=== PATIENT | male | born 2000 | race Caucasian/White ===

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

== ENCOUNTER 2018-04-21 14:09 | Emergency (ER) | payer BC ==
[2018-04-21 14:27] VITALS: BP 126/66
--- NOTE | 2018-04-21 15:00 | RAD ---
Indication: Cough. 2 views of the chest including dual energy PA views demonstrate no mediastinal shift. Heart is of normal size and configuration. Lung hoang appear clear. IMPRESSION: No active cardiopulmonary disease is noted.
--- NOTE | 2018-04-21 15:30 | ED ---
Throat Pain/Nasal Congestion - HPI Summary HPI Summary: 18 yr old with two complaints. 1) pain over the flap of skin that overlies the right mandibular wisdom tooth for one week. 2) Nasal congestion, runny nose, mild hoarse voice past week with now rattle in chest with deep breath for the past couple days. Denies fever, chills, SOB, trouble swallowing, facial swelling. No CP, no cough of sputum or blood. - History of Current Complaint Chief Complaint: UCDentalProblem Time Seen by Provider: 04/21/18 14:39 - Allergies/Home Medications Allergies/Adverse Reactions: Allergies Allergy/AdvReac Type Severity Reaction Status Date / Time No Known Allergies Allergy Verified 04/21/18 14:23 PMH/Surg Hx/FS Hx/Imm Hx Infectious Disease History: No Infectious Disease History: Denies: Traveled Outside the [place] in Last 30 Days - Family History Known Family History: Positive: Hypertension - Social History Alcohol Use: Weekly Alcohol Amount: 3xWEEK Substance Use Type: Reports: None Smoking Status (MU): Never Smoked Tobacco Review of Systems Constitutional: Negative Positive: Dental Pain, Nasal Discharge All Other Systems Reviewed And Are Negative: Yes Physical Exam Triage Information Reviewed: Yes Vital Signs On Initial Exam: Initial Vitals Temp Pulse Resp BP Pulse Ox 97.9 F 69 15 126/66 100 04/21/18 14:24 04/21/18 14:24 04/21/18 14:24 04/21/18 14:24 04/21/18 14:24 Vital Signs Reviewed: Yes Appearance: Positive: Well-Appearing, No Pain Distress Skin: Positive: Warm, Skin Color Reflects Adequate Perfusion Head/Face: Positive: Normal Head/Face Inspection ENT: Positive: Pharynx normal, Nasal congestion, TMs normal. Negative: Hoarse voice Dental: Positive: Other - tenderness over the right mandibular wisdom tooth flap of gum tissue with partial impaction of that tooth, mild gingival cellulitis. Neck: Positive: Nontender Respiratory/Lung Sounds: Positive: Clear to Auscultation, Breath Sounds Present Cardiovascular: Positive: RRR. Negative: Murmur Abdomen Description: Positive: Nontender Musculoskeletal: Positive: Strength/ROM Intact Neurological: Positive: Normal, Sensory/Motor Intact, Alert, Oriented to Person Place, Time, CN Intact II-III Psychiatric: Positive: Normal Diagnostics - Vital Signs Vital Signs Temp Pulse Resp BP Pulse Ox 04/21/18 14:24 97.9 F 69 15 126/66 100 - Laboratory Lab Statement: Any lab studies that have been ordered have been reviewed, and results considered in the medical decision making process. - Radiology chest pa lat Radiology Interpretation Completed By: Radiologist Summary of Radiographic Findings: NAD EENT Course/Dx - Course Course Of Treatment: 18 yr old with impacted wisdom tooth, and also URI. No stridor, and normal chest xray on exam. Fu with PMD and also his dentis oral surgeon. Will cover with Augmentin for his wisdom tooth impaction. - Diagnoses Provider Diagnoses: Tooth, impacted, Dental infection, Upper respiratory infection Discharge - Sign-Out/Discharge Documenting (check all that apply): Patient Departure All imaging exams completed and their final reports reviewed: Yes - Discharge Plan Condition: Good Disposition: HOME Prescriptions: Amoxicillin/Clavulanate TAB* [Augmentin TAB 875*] 875 mg PO BID #20 tab Patient Education Materials: Toothache (ED), Upper Respiratory Infection (ED) Referrals: No Primary Care Phys,NOPCP [Primary Care Provider] - [facility] [place]Outside] Alistair Castro DMD [Doctor of Dental Medicine] - 1 Day - Billing Disposition and Condition Condition: GOOD Disposition: Home
== END 2018-04-21 15:45 | disposition home or self-care (01) ==
LOC: UCCORT 14:09
DX: K04.7 Periapical abscess without sinus (principal); K01.1 Impacted teeth; J06.9 Acute upper respiratory infection, unspecified
CPT/HCPCS: 71046; 99212; G0463

== ENCOUNTER 2018-08-28 13:00 | Emergency (ER) | payer BC ==
[2018-08-28 13:26] VITALS: BP 124/74
--- NOTE | 2018-08-28 15:05 | UC ---
Throat Pain/Nasal Vaibhav HPI - HPI Summary HPI Summary: 18-year-old male presents with 2 day history of sore throat with chills, headache, nausea, and neck stiffness. Denies visual disturbances, photophobia, ear pain, nasal congestion, dysphagia, cough, chest pain, shortness of breath, vomiting or diarrhea. - History of Current Complaint Chief Complaint: UCRespiratory Stated Complaint: STIFF NECK,FEVER,SARKAR,STOMACH ACHE Time Seen by Provider: 08/28/18 14:44 Hx Obtained From: Patient Pain Intensity: 0 - Allergies/Home Medications Allergies/Adverse Reactions: Allergies Allergy/AdvReac Type Severity Reaction Status Date / Time No Known Allergies Allergy Verified 08/28/18 13:21 Home Medications: Home Medications Dm/PE/Acetaminophen/Doxylamine [COLD & FLU MULTI-SYMPTOM (Liquid)] 1 mis PO ONCE PRN 08/28/18 [History Confirmed 08/28/18] PMH/Surg Hx/FS Hx/Imm Hx Previously Healthy: Yes - Denies significant PMH - Surgical History Surgical History: None - Family History Known Family History: Positive: Hypertension - Social History Occupation: Student Lives: Dormitory/Roommates Alcohol Use: Weekly Alcohol Amount: 3xWEEK Substance Use Type: None Smoking Status (MU): Never Smoked Tobacco - Immunization History Most Recent Influenza Vaccination: Not the 2017/2018 Season Most Recent Tetanus Shot: UTD Review of Systems All Other Systems Reviewed And Are Negative: Yes Constitutional: Positive: Fever, Chills, Fatigue Skin: Negative: Rash Eyes: Negative: Drainage, Eye Redness ENT: Positive: Sore Throat. Negative: Ear Ache, Nasal Discharge, Sinus Congestion, Sinus Pain/Tenderness Respiratory: Negative: Shortness Of Breath, Cough Cardiovascular: Negative: Palpitations, Chest Pain Gastrointestinal: Positive: Nausea. Negative: Abdominal Pain, Vomiting, Diarrhea Genitourinary: Positive: Negative Musculoskeletal: Positive: Negative Neurological: Positive: Negative Is Patient Immunocompromised?: No Physical Exam - Summary Physical Exam Summary: GENERAL APPEARANCE: Well developed, well nourished, alert and cooperative, and appears to be in no acute distress. EYES: Conjunctiva clear. No drainage. PERRL, EOM intact. Vision is grossly intact. EARS: External auditory canals and tympanic membranes clear, hearing grossly intact. NOSE: No nasal discharge. THROAT: Pharyngeal erythema. Tonsils 2+ without exudate or lesions. Uvula midline. Oral cavity normal. Teeth and gingiva in good general condition. NECK: Neck supple, non-tender. Mild anterior cervical lymphadenopathy. No nuchal rigidity. CARDIAC: Normal S1 and S2. No S3, S4 or murmurs. Rhythm is regular. There is no peripheral edema, cyanosis or pallor. Extremities are warm and well perfused. Capillary refill is less than 2 seconds. Peripheral pulses intact. LUNGS: Clear to auscultation without rales, rhonchi, wheezing or diminished breath sounds. ABDOMEN: Positive bowel sounds. Soft, nondistended, nontender. No guarding or rebound. No masses or hepatosplenomegally. MUSKULOSKELETAL: ROM intact to all extremities. No joint erythema or tenderness. Normal muscular development. Normal gait. SKIN: Skin normal color, texture and turgor with no lesions or eruptions. Triage Information Reviewed: Yes Vital Signs: Initial Vital Signs Temp 98.8 F 08/28/18 13:22 Pulse 78 08/28/18 13:22 Resp 16 08/28/18 13:22 BP 124/74 08/28/18 13:22 Pulse Ox 99 08/28/18 13:22 Vital Signs Reviewed: Yes Throat Pain/Nasal Course/Dx - Course Course Of Treatment: 18-year-old male presents with 2 day history of sore throat with chills, headache, nausea, and neck stiffness. Denies visual disturbances, photophobia, ear pain, nasal congestion, dysphagia, cough, chest pain, shortness of breath, vomiting or diarrhea. Afebrile. Vital signs stable. Exam reveals a young adult male in no acute distress with pharyngeal erythema, 2+ tonsils without exudate, mild anterior cervical lymphadenopathy, supple and nontender neck with full range of motion and no nuchal rigidity, neurologically intact, and otherwise unremarkable exam. Rapid strep and flu tests were negative. I suspect that his symptoms are from a viral illness and I 'm recommending symptomatic treatment at this time. He is to return here or follow up in the [facility] in 7 days if his symptoms do not improve. Anticipatory guidance and warning symptoms were reviewed with the patient. Verbalizes understanding and agrees with plan of care. - Differential Dx/Diagnosis Differential Diagnosis/HQI/PQRI: Influenza, Otitis Media, Pharyngitis, Tonsillitis, URI Provider Diagnosis: Viral URI with cough Discharge - Sign-Out/Discharge Documenting (check all that apply): Patient Departure All imaging exams completed and their final reports reviewed: No Studies - Discharge Plan Condition: Stable Disposition: HOME Patient Education Materials: Pharyngitis (ED) Forms: *School Release Referrals: No Primary Care Phys,NOPCP [Primary Care Provider] - Additional Instructions: The rapid strep and flu tests performed in the clinic today were negative. Your symptoms are likely from a viral infection. Viral infections do not respond to antibiotics and are limited to the treatment of symptoms. Viral infections typically run their course in 7-10 days. Drink plenty of fluids to avoid dehydration especially if you are running any fever. Use salt water gargles several times a day. Take over the counter acetaminophen (Tylenol) or ibuprofen (Advil, Motrin) according to directions as needed for pain or fever. You may also use Chloraseptic spray or Cepacol lonzenges according to directions which contain a numbing medication and can provide some temporary relief from your sore throat. Return here or follow up with at the [facility] in 7 days if symptoms persist. Seek immediate medical attention in the emergency room if you have fever greater than 100.5 F despite taking acetaminophen or ibuprofen, are unable to swallow or develop drooling, are unable to open your mouth fully, are unable to eat or drink, have worsening headache that is not relieved with over the counter pain medication, have difficulty breathing, or any worsening of symptoms. - Billing Disposition and Condition Condition: STABLE Disposition: Home - Attestation Statements Provider Attestation: Per institutional requirements, I have reviewed the chart, however, I was not consulted specifically or made aware of this patient by the midlevel provider. I did not personally evaluate, interact with , or disposition this patient.
[2018-08-28 15:38] LABS: Influenza A Molecular NEGATIVE (Negative); Influenza B Molecular NEGATIVE (Negative)
== END 2018-08-28 15:51 | disposition home or self-care (01) ==
LOC: UCCORT 13:00
DX: J06.9 Acute upper respiratory infection, unspecified (principal); R05 Cough
CPT/HCPCS: 87651; 99211; G0463

== ENCOUNTER 2019-04-28 10:56 | Emergency (ER) | payer BC ==
[2019-04-28 11:51] VITALS: BP 115/63
--- NOTE | 2019-04-28 12:35 | UC ---
Ear Complaint HPI - HPI Summary HPI Summary: 19-year-old male presents with complaints of onset of right ear pain last evening. States the pain woke him several times during the night. 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 Denies fever, chills, tinnitus, ear drainage, loss of hearing, vertigo, or URI symptoms. - History of Current Complaint Chief Complaint: UCEar Stated Complaint: RT EAR PAIN Time Seen by Provider: 04/28/19 12:19 Hx Obtained From: Patient Pain Intensity: 7 - Allergies/Home Medications Allergies/Adverse Reactions: Allergies Allergy/AdvReac Type Severity Reaction Status Date / Time No Known Allergies Allergy Verified 04/28/19 11:47 PMH/Surg Hx/FS Hx/Imm Hx Previously Healthy: Yes - Denies significant PMH - Surgical History Surgical History: None - Family History Known Family History: Positive: Hypertension - Social History Occupation: Employed Full-time, Student Lives: With Family Alcohol Use: Weekly Alcohol Amount: 3xWEEK Substance Use Type: None Smoking Status (MU): Never Smoked Tobacco - Immunization History Most Recent Influenza Vaccination: Not the 2017/2017 Season Most Recent Tetanus Shot: UTD Review of Systems All Other Systems Reviewed And Are Negative: Yes Constitutional: Negative: Fever, Chills Skin: Negative: Rash Eyes: Negative: Drainage, Eye Redness ENT: Positive: Ear Ache. Negative: Sore Throat, Nasal Discharge, Sinus Congestion, Sinus Pain/Tenderness Respiratory: Negative: Cough Cardiovascular: Positive: Negative Gastrointestinal: Positive: Negative Genitourinary: Positive: Negative Musculoskeletal: Positive: Negative Neurological: Positive: Negative Is Patient Immunocompromised?: No Physical Exam - Summary Physical Exam Summary: GENERAL APPEARANCE: Well developed, well nourished, alert and cooperative, and appears to be in no acute distress. EYES: Conjunctiva clear. No drainage. EARS: Left external auditory canal and tympanic membranes clear. Right external auditory canal with mild-moderate erythema and edema. TM intact, opaque, with good cone of light. NOSE: No nasal discharge. THROAT: Pharynx normal. No tonsilar inflammation, swelling, exudate, or lesions. Uvula midline. Oral cavity normal. Teeth and gingiva in good general condition. NECK: Neck supple, non-tender without lymphadenopathy. CARDIAC: Normal S1 and S2. No S3, S4 or murmurs. Rhythm is regular. There is no peripheral edema, cyanosis or pallor. Extremities are warm and well perfused. Capillary refill is less than 2 seconds. Peripheral pulses intact. LUNGS: Clear to auscultation without rales, rhonchi, wheezing or diminished breath sounds. ABDOMEN: Positive bowel sounds. Soft, nondistended, nontender. No guarding or rebound. No masses or hepatosplenomegally. MUSKULOSKELETAL: ROM intact to all extremities. No joint erythema or tenderness. Normal muscular development. Normal gait. SKIN: Skin normal color, texture and turgor with no lesions or eruptions. Triage Information Reviewed: Yes Vital Signs: Initial Vital Signs Temp 97.9 F 04/28/19 11:48 Pulse 60 04/28/19 11:48 Resp 16 04/28/19 11:48 BP 115/63 04/28/19 11:48 Pulse Ox 99 04/28/19 11:48 Vital Signs Reviewed: Yes Ear Complaint Course/Dx - Course Course Of Treatment: 19-year-old male presents with complaints of onset of right ear pain last evening. States the pain woke him several times during the night. 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 Denies fever, chills, tinnitus, ear drainage, loss of hearing, vertigo, or URI symptoms. Afebrile. Vital signs stable. On exam patient was noted to have right external auditory canal with mild-moderate erythema and edema, the TM intact, opaque, with good cone of light, and remainder of exam was unremarkable. Will treat for a right otitis externa with Ciprodex otic 4 drops into the right ear twice daily for 7 days. He is to return here or follow up with the [facility] [place] in 3-5 days if symptoms do not improve. Anticipatory guidance and warning symptoms were reviewed with the patient. Verbalizes understanding and agrees with plan of care. - Differential Dx/Diagnosis Differential Diagnosis/HQI/PQRI: Otitis Externa, Otitis Media, URI Provider Diagnosis: External otitis of right ear Discharge ED - Sign-Out/Discharge Documenting (check all that apply): Patient Departure All imaging exams completed and their final reports reviewed: No Studies - Discharge Plan Condition: Stable Disposition: HOME Prescriptions: Ciproflox/Dexameth OTIC.SUSP* [Ciprodex OTIC.SUSP*] 4 drop .SEE ORDER BID 7 Days #1 drop Patient Education Materials: Otitis Externa (ED) Referrals: No Primary Care Phys,NOPCP [Primary Care Provider] - Additional Instructions: Your exam shows an infection of the right ear canal,a condition called otitis externa. We will start she on a an antibiotic and steroid ear drop to treat the infection and help with the inflammation and pain. Use Ciprodex otic 4 drops to the affected ear twice daily for 7 days. Take acetaminophen (Tylenol) or ibuprofen (Advil, Motrin) according to directions as needed for pain. Return here or [facility]-5 days if your symptoms are not improving. Seek immediate medical attention if you develop a fever greater than 100.5 F, have loss of hearing, increased pain that is not managed with pain medication, have drainage or bleeding from the ear, or any worsening of symptoms. - Billing Disposition and Condition Condition: STABLE Disposition: Home
== END 2019-04-28 13:01 | disposition home or self-care (01) ==
LOC: UCCORT 10:56
DX: H60.91 Unspecified otitis externa, right ear (principal)
CPT/HCPCS: 99212; G0463

== ENCOUNTER 2019-05-13 10:08 | Emergency (ER) | payer BC ==
[2019-05-13 10:30] VITALS: BP 128/74
[2019-05-13 10:58] LABS: Influenza A Molecular NEGATIVE (Negative); Influenza B Molecular NEGATIVE (Negative)
--- NOTE | 2019-05-13 11:05 | UC ---
Respiratory Complaint HPI - HPI Summary HPI Summary: 19 yo male with < 48 hour hx of cough/fever/chills/nasal congestion no n/v/d no sob no chest pain - History of Current Complaint Chief Complaint: UCRespiratory Stated Complaint: SARKAR,CONGESTION,COUGH,FEVER Time Seen by Provider: 05/13/19 10:47 Hx Obtained From: Patient Onset/Duration: Gradual Onset Timing: Constant Severity Initially: Mild Severity Currently: Moderate Pain Intensity: 0 Pain Scale Used: 0-10 Numeric Character: Cough: Nonproductive Aggravating Factors: Nothing Alleviating Factors: Nothing Associated Signs And Symptoms: Positive: Fever, Chills, Nasal Congestion - Allergies/Home Medications Allergies/Adverse Reactions: Allergies Allergy/AdvReac Type Severity Reaction Status Date / Time No Known Allergies Allergy Verified 05/13/19 10:27 Home Medications: Home Medications Ibuprofen TAB* [Advil TAB*] 400 mg PO Q6H PRN 05/13/19 [History Confirmed ] PMH/Surg Hx/FS Hx/Imm Hx Previously Healthy: Yes - Surgical History Surgical History: None - Family History Known Family History: Positive: Hypertension - Social History Alcohol Use: Two to three times weekly Alcohol Amount: 3xWEEK Substance Use Type: Marijuana Substance Use Comment - Amount & Last Used: Three times weekly Smoking Status (MU): Never Smoked Tobacco - Immunization History Most Recent Influenza Vaccination: Not the 2016/2017 Season Most Recent Tetanus Shot: UTD Review of Systems All Other Systems Reviewed And Are Negative: Yes Constitutional: Positive: Fever, Chills Eyes: Positive: Negative ENT: Positive: Nasal Discharge, Sinus Congestion. Negative: Epistaxis, Dental Pain, Sore Throat, Ear Ache Respiratory: Positive: Cough. Negative: Shortness Of Breath Cardiovascular: Negative: Palpitations, Chest Pain Gastrointestinal: Positive: Negative Genitourinary: Positive: Negative Motor: Positive: Negative Neurovascular: Positive: Negative Musculoskeletal: Positive: Negative Neurological: Positive: Negative Psychological: Positive: Negative Physical Exam Triage Information Reviewed: Yes Appearance: Well-Appearing, No Pain Distress, Well-Nourished Vital Signs: Initial Vital Signs Temp 97.4 F 05/13/19 10:25 Pulse 96 05/13/19 10:25 Resp 18 05/13/19 10:25 BP 128/74 05/13/19 10:25 Pulse Ox 96 05/13/19 10:25 Vital Signs Reviewed: Yes Eyes: Positive: Conjunctiva Clear ENT: Positive: Hearing grossly normal, Pharynx normal, TMs normal, Tonsillar swelling, Uvula midline. Negative: Nasal congestion, Nasal drainage, Tonsillar exudate, Trismus, Muffled voice, Hoarse voice, Sinus tenderness Dental Exam: Normal Neck: Positive: Supple, Nontender, No Lymphadenopathy Respiratory: Positive: Lungs clear, Normal breath sounds, No respiratory distress, No accessory muscle use Cardiovascular: Positive: RRR, No Murmur Musculoskeletal: Positive: ROM Intact, No Edema Neurological: Positive: Alert Psychological Exam: Normal Skin Exam: Normal Respiratory Course/Dx - Differential Dx/Diagnosis Provider Diagnosis: Viral URI with cough Discharge ED - Sign-Out/Discharge Documenting (check all that apply): Patient Departure All imaging exams completed and their final reports reviewed: No Studies - Discharge Plan Condition: Stable Disposition: HOME Prescriptions: Benzonatate CAP* [Tessalon CAP*] 100 - 200 mg PO TID PRN #28 cap PRN Reason: Cough Patient Education Materials: Upper Respiratory Infection (ED) Forms: *School Release Referrals: [facility] [place] [facility] [Outside] - If Needed Additional Instructions: recheck for new or worsening symptoms recheck in 4 days if not better - Billing Disposition and Condition Condition: STABLE Disposition: Home
== END 2019-05-13 11:18 | disposition home or self-care (01) ==
LOC: UCCORT 10:08
DX: J06.9 Acute upper respiratory infection, unspecified (principal); R05 Cough
CPT/HCPCS: 99212; G0463